=== PATIENT | female | born 1965 | race Caucasian/White ===

== ENCOUNTER 2017-12-03 13:56 | Emergency (ER) | payer OTHER ==
[2017-12-03] MEDS ORDERED: Norflex 60 MG/2 ML IM ONE (14:12)
[2017-12-03] MEDS ORDERED: TORAdol 30 mg Injection IV ONE (14:12)
--- NOTE | 2017-12-03 14:15 | ERPHSYRPT ---
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 Pt sitting on bed with knees pulled up. PT speech is clear in full sentences. no apparent respiratory distress. Physician History: CC: low back pain Hx: 52 y/o patient of Dr Araujo. She has hx of prior back problems and prior surgery per Dr Bill. She bent over this AM around 10AM and felt a pop and severe pain in her low back. No N/T/W. No urinary incontinence. No fever or chills. EMS gave some medication with partial relief. Pain sharp and severe. Timing/Duration: today (10AM) Quality: sharp Back Pain Location: lumbar spine Severity of Pain-Max: severe Severity of Pain-Current: severe Allergies/Adverse Reactions: No Known Drug Allergies Allergy (Verified 01/25/16 22:03) Home Medications: Atorvastatin Calcium [Lipitor] 20 mg PO DAILY 12/03/17 [History] Carvedilol [Carvedilol] 3.125 mg PO DAILY 12/03/17 [History] Diclofenac Sodium 50 mg [Voltaren 50 mg] 50 mg PO DAILY 12/03/17 [History] Duloxetine HCl [Cymbalta] 60 mg PO DAILY 12/03/17 [History] PANTOPRAZOLE 40 mg Tablet [Protonix 40MG Tablet] 40 mg PO QAM 12/03/17 [ History] Hx Tetanus, Diphtheria Vaccination/Date Given: No Hx Influenza Vaccination/Date Given: No Hx Pneumococcal Vaccination/Date Given: No Immunizations Up to Date: Yes - Review of Systems Constitutional: No Fever, No Chills Cardiac: No Chest Pain Abdominal/Gastrointestinal: No Abdominal Pain Musculoskeletal: Back Pain, Fall, No Neck Pain, No Joint Pain Skin: No Rash Neurological: No Focal Weakness, No Headache, No Parasthesia All Other Systems: Reviewed and Negative - Past Medical History Pertinent Past Medical History: Yes Neurological History: No Pertinent History ENT History: No Pertinent History Cardiac History: Angina Respiratory History: Bronchitis Endocrine Medical History: No Pertinent History Musculoskeletal History: Arthritis Other Medical History: LEAKING VALVE - Past Surgical History Past Surgical History: Yes Gastrointestinal: Cholecystectomy Other Surgical History: NOSE,GALLBLADDER,TUBAL, BACK - Social History Smoking Status: Current every day smoker How long have you smoked: 33 years Exposure to second hand smoke: Yes Drug Use: none Patient Lives Alone: No - Female History Hx Last Menstrual Period: menopause Hx Now: No - Nursing Vital Signs Nursing Vital Signs: Initial Vital Signs Temperature 98.3 F 12/03/17 13:57 Pulse Rate 80 12/03/17 13:57 Respiratory Rate 16 12/03/17 13:57 Blood Pressure 155/102 12/03/17 13:57 O2 Sat by Pulse Oximetry 100 12/03/17 13:57 Pain Scale Pain Intensity [Lower Back] 2 Pain Intensity 2 - Physical Exam General Appearance: alert, other (uncomfortable appearing) Eye Exam: PERRL/EOMI Ears, Nose, Throat Exam: normal ENT inspection, moist mucous membranes Neck Exam: normal inspection, non-tender, supple Respiratory Exam: normal breath sounds Cardiovascular Exam: regular rate/rhythm Gastrointestinal Exam: soft, No tenderness, No distention Back Exam: normal inspection, point tenderness (low back) Extremity Exam: normal inspection, normal range of motion Neurologic Exam: alert, oriented x 3, cooperative, 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, sensation nml, other (1+ MSR's patella bilateral), No motor deficits Skin Exam: warm, dry, No rash SpO2 Interpretation: normal SpO2: 100 Oxygen Delivery: Room Air - Course Nursing assessment & vital signs reviewed: Yes - Radiology Exams lumbar X-ray Interpretation: Teleradiologist Report (DJD), No Fracture, No Subluxation Ordered Tests: Active Orders 24 hr Category Date Time Status LUMBAR COMPLETE (MIN 4 VIEWS) Stat Exams 12/03/17 14:12 Completed Medication Summary Discontinued Medications Generic Name Dose Route Start Last Admin Trade Name Freq PRN Reason Stop Dose Admin Ketorolac Tromethamine 30 mg 12/03/17 14:12 12/03/17 14:49 Toradol 30 Mg Injection IV 12/03/17 14:13 30 mg STAT ONE Administration Ketorolac Tromethamine Confirm 12/03/17 14:30 Toradol 30 Mg Injection Administered 12/03/17 14:31 Dose 30 mg .ROUTE .STK-MED ONE Orphenadrine Citrate 60 mg 12/03/17 14:12 12/03/17 14:49 Norflex 60 Mg/2 Ml IM 12/03/17 14:13 60 mg STAT ONE Administration Orphenadrine Citrate Confirm 12/03/17 14:30 Norflex 60 Mg/2 Ml Administered 12/03/17 14:31 Dose 60 mg .ROUTE .STK-MED ONE - Progress Progress Note: 12/03/17 15:18 She has been medicated. No red flag back symptoms. Will release with muscle relaxer. To follow up with Dr Araujo as may need PT. Counseled pt/family regarding: diagnosis, need for follow-up, rad results - Departure Time of Disposition: 15:19 Departure Disposition: Home Clinical Impression: Lumbar sprain Qualifiers: Encounter type: initial encounter Qualified Code(s): S33.5XXA - Sprain of ligaments of lumbar spine, initial encounter Condition: Stable Critical Care Time: No Referrals: YANET ARAUJO MD [NON-STAFF PHY W/O PRIVILEGES] - Instructions: Low Back Pain (DC) Additional Instructions: BACK INJURY 1. May apply moist heat frequently for relief of pain. Take care not to burn the skin. Do not use heat for more than 30 minutes at a time. 2. Try to sleep on a firm bed, flat on your back. 3. If no improvement is noticed in 2-3 days, follow up with your family physician. 4. If you notice any numbness, tingling, weakness, or problems with your bowel or bladder, you should call your family physician or return to the emergency department. Continue diclofenac as prescribed. Rx norflex for muscle relaxer. Follow up with Dr Araujo. Prescriptions: Orphenadrine Citrate 100 mg [Norflex 100 MG Tablet] 1 tab PO BID #10 tab
[2017-12-03] MEDS ORDERED: TORAdol 30 mg Injection ONE (14:30)
[2017-12-03] MEDS ORDERED: Norflex 60 MG/2 ML ONE (14:30)
--- NOTE | 2017-12-03 15:06 | XRAY ---
Indication: Sharp low back pain. Comparison: July 09, 2009. 5 views of the lumbar spine again demonstrates minimal levoscoliosis centered at L3-L4 level and minimal multilevel end plate spurring. Progressive worsening L5-S1 disc space loss with opposing endplate sclerosis/spurring. Also new mild bilateral L5-S1 degenerative facet arthropathy and mild scattered aortoiliac calcifications. Impression: Again degenerative changes worsened at the L5-S1 level and minimal scoliosis. Negative acute fracture/subluxation.
[2017-12-03] MEDS ORDERED: MORPHINE SULFATE 4 MG INJ IV ONE (15:17)
[2017-12-03] MEDS ORDERED: MORPHINE SULFATE 4 MG INJ ONE (15:23)
[2017-12-03 15:46] VITALS: BP 148/94; PULSE 94; O2SAT 97
== END 2017-12-03 15:46 | disposition home or self-care (01) ==
LOC: ED 13:56
DX: S33.5XXA Sprain of ligaments of lumbar spine, initial encounter (principal); M54.5 Low back pain; Z79.899 Other long term (current) drug therapy
CPT/HCPCS: 72110; 96372; 96374; 99283; 99284; J1885; J2270; J2360

== ENCOUNTER 2021-04-26 13:22 | Emergency (ER) | payer OTHER, SELFPAY ==
[2021-04-26] MEDS ORDERED: DECADRON 10MG INJ. IV ONE (13:43)
[2021-04-26] MEDS ORDERED: TORAdol 30 mg Injection IV ONE (13:43)
[2021-04-26] MEDS ORDERED: DECADRON 10MG INJ. ONE (13:49)
[2021-04-26] MEDS ORDERED: TORAdol 30 mg Injection ONE (13:49)
--- NOTE | 2021-04-26 14:12 | ERPHSYRPT ---
- History of Present Illness Time Seen by Provider: 04/26/21 13:40 Source: patient Exam Limitations: no limitations Patient Subjective Stated Complaint: Pt states "I bent down to get a leaf and had a sudden pain in my lower back." Triage Nursing Assessment: Pt presented alert and oriented X 3, skin pwd. Pt ambulate with a shakey slow gait. PT unable to sit still. PT trembling and grunting. Physician History: Patient is a 56-year-old female presents to our ED with acute onset lumbar spine pain. Patient has history of chronic back pain. Today at approximately 11 AM patient was bending forward to lift up a leaf from the ground. At that time patient feel a severe pain to her midline lumbar spine. Pain well localized. Pain described as an ache that is worse with movement and palpation. Pain improved with rest. No other symptoms. No change in bowel bladder function. No recent back procedures. No saddle anesthesia. Patient voices no other complaints concerns at this time. Timing/Duration: today Method of Injury: bending Quality: aching Back Pain Location: lumbar spine Severity of Pain-Max: moderate Severity of Pain-Current: mild Modifying Factors: Improves With: movement Associated Symptoms: denies symptoms Previous symptoms: same symptoms as today Allergies/Adverse Reactions: No Known Drug Allergies Allergy (Verified 01/25/16 22:03) Home Medications: Atorvastatin Calcium [Lipitor] 20 mg PO DAILY 12/03/17 [History] Diclofenac Sodium 50 mg [Voltaren 50 mg] 50 mg PO DAILY 12/03/17 [History] Duloxetine HCl [Cymbalta] 60 mg PO DAILY 12/03/17 [History] PANTOPRAZOLE 40 mg Tablet [Protonix 40MG Tablet] 40 mg PO QAM 12/03/17 [History] carvediloL [Carvedilol] 3.125 mg PO DAILY 12/03/17 [History] Hx Tetanus, Diphtheria Vaccination/Date Given: No Hx Influenza Vaccination/Date Given: Yes Hx Pneumococcal Vaccination/Date Given: No Immunizations Up to Date: Yes Travel Risk - International Travel Have you traveled outside of the country in past 3 weeks: No - Coronavirus Screening Are you exhibiting any of the following symptoms?: No Close contact with a COVID-19 positive Pt in past 14-21 Days: No - Vaccine Status Have you recieved a Covid-19 vaccination: Yes 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: [employer] - Vaccination Dates Date of 2cond Vaccination (if applicable): 11/2020 - Review of Systems Constitutional: No Symptoms, No Fever, No Chills Eyes: No Symptoms Ears, Nose, & Throat: No Symptoms Respiratory: No Symptoms, No Cough, No Dyspnea Cardiac: No Symptoms, No Chest Pain, No Edema, No Syncope Abdominal/Gastrointestinal: No Symptoms, No Abdominal Pain, No Nausea, No Vomiting, No Diarrhea Genitourinary Symptoms: No Symptoms, No Dysuria Musculoskeletal: No Symptoms, No Back Pain, No Neck Pain Skin: No Symptoms, No Rash Neurological: No Symptoms, No Dizziness, No Focal Weakness, No Sensory Changes Psychological: No Symptoms Endocrine: No Symptoms Hematologic/Lymphatic: No Symptoms Immunological/Allergic: No Symptoms All Other Systems: Reviewed and Negative - Past Medical History Pertinent Past Medical History: Yes Neurological History: No Pertinent History ENT History: No Pertinent History Cardiac History: Angina Respiratory History: Bronchitis Endocrine Medical History: No Pertinent History Musculoskeletal History: Arthritis Other Medical History: LEAKING VALVE - Past Surgical History Past Surgical History: Yes Gastrointestinal: Cholecystectomy Other Surgical History: NOSE,GALLBLADDER,TUBAL, BACK - Social History Smoking Status: Current every day smoker How long have you smoked: years Exposure to second hand smoke: Yes Drug Use: none Patient Lives Alone: No - Female History Hx Now: No - Nursing Vital Signs Nursing Vital Signs: Initial Vital Signs Temperature 97.6 F 04/26/21 13:31 Pulse Rate 90 04/26/21 13:31 Respiratory Rate 24 04/26/21 13:31 Blood Pressure 132/61 04/26/21 13:31 O2 Sat by Pulse Oximetry 97 04/26/21 13:31 Pain Scale Pain Intensity [] 10 Pain Intensity 10 - Physical Exam General Appearance: no apparent distress, alert Eye Exam: PERRL/EOMI, eyes nml inspection Neck Exam: normal inspection, non-tender, supple, full range of motion, No meningismus, No midline tenderness Respiratory Exam: normal breath sounds, lungs clear, No respiratory distress Cardiovascular Exam: regular rate/rhythm, normal heart sounds Gastrointestinal Exam: soft, No tenderness, No mass Back Exam: other (Tenderness to palpation midline lumbar spine.) Extremity Exam: normal inspection, normal range of motion, No calf tenderness, No pedal edema Neurologic Exam: alert, oriented x 3, cooperative, 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 Mild levoscoliosis. Endplates burning. Vascular calcifications. No acute findings.) Ordered Tests: Active Orders 24 hr Category Date Time Status LUMBAR LIMITED (2 OR 3 VIEWS) Stat Exams 04/26/21 13:41 Completed Medication Summary Discontinued Medications Generic Name Dose Route Start Last Admin Trade Name Freq PRN Reason Stop Dose Admin Dexamethasone Sodium Phosphate 10 mg 04/26/21 13:43 04/26/21 13:53 Decadron 10mg Inj. IV 04/26/21 13:44 10 mg STAT ONE Administration Dexamethasone Sodium Phosphate Confirm 04/26/21 13:49 Decadron 10mg Inj. Administered 04/26/21 13:50 Dose 10 mg .ROUTE .STK-MED ONE Ketorolac Tromethamine 30 mg 04/26/21 13:43 04/26/21 13:51 Toradol 30 Mg Injection IV 04/26/21 13:44 30 mg STAT ONE Administration Ketorolac Tromethamine Confirm 04/26/21 13:49 Toradol 30 Mg Injection Administered 04/26/21 13:50 Dose 30 mg .ROUTE .STK-MED ONE - Progress Progress: improved Progress Note: Patient reassessed. Pain significantly improved. X-ray negative for acute pathology. Chronic findings observed. Work note provided. Patient agrees to follow-up with her primary care doctor within 48 hours for reevaluation. Portions of this note were created with voice recognition technology. There may be grammatical, spelling, punctuation or sound alike errors 04/26/21 14:42 Counseled pt/family regarding: diagnosis, need for follow-up, rad results - Departure Departure Disposition: Home Clinical Impression: Lumbosacral strain, Arthritis, lumbar spine Condition: Stable Critical Care Time: No Referrals: YANET KELLOGG MD [Primary Care Provider] - Additional Instructions: Discharge/Care Plan KATANIKA MC was seen on 04/26/21 in the Emergency Room. The patient was counseled regarding Diagnosis,Lab results, Imaging studies, need for follow up and when to return to the Emergency Room. Prescriptions given: Discharge Note I have spoken with the patient and/or caregivers. I have explained the patient's condition, diagnosis and treatment plan based on the information available to me at this time. I have answered the patient's and/or caregiver's questions and addressed any concerns. The patient and/or caregivers have as good understanding of the patient's diagnosis, condition and treatment plan as can be expected at this point. The vital signs have been stable. The patient's condition is stable and appropriate for discharge from the emergency department. The patient will pursue further outpatient evaluation with the primary care physician or other designated or consulting physician as outlined in the discharge instructions. The patient and/or caregivers are agreeable to this plan of care and follow-up instructions have been explained in detail. The patient and/or caregivers have received these instruction. The patient/and or caregivers are aware that any significant change in condition or worsening of symptoms should prompt an immediate return to this or the closest emergency department or call 911.
--- NOTE | 2021-04-26 14:32 | XRAY ---
Indication: Low back pain bending over. Comparison: December 03, 2017. 3 view lumbar spine unchanged again demonstrating minimal levoscoliosis, minimal multilevel endplate spurring, mild bilateral L5-S1 degenerative facet arthropathy, mild L5-S1 disc space loss, scattered vascular calcifications, and cholecystectomy clips. No new/acute findings.
[2021-04-26 14:43] VITALS: BP 124/70; PULSE 78
[2021-04-26 14:46] VITALS: O2SAT 99
== END 2021-04-26 15:01 | disposition home or self-care (01) ==
LOC: ED 13:22
DX: S39.012A Strain of muscle, fascia and tendon of lower back, initial encounter (principal); M47.897 Other spondylosis, lumbosacral region
CPT/HCPCS: 36000; 72100; 96374; 96375; 99284; J1100; J1885

== ENCOUNTER 2022-06-28 09:34 | Emergency (ER) | payer OTHER ==
--- NOTE | 2022-06-28 09:40 | ERPHSYRPT ---
- History of Present Illness Time Seen by Provider: 06/28/22 09:40 Historian: patient Exam Limitations: no limitations Physician History: This is a 57-year-old, postmenopausal white female patient who is a current daily smoker of cigarettes and has a history of hypertension, gastroesophageal reflux disease, hyperlipidemia and chronic angina and presents with 2-day hist ory of worsening suprapubic pain with associated nausea and vaginal bleeding that began yesterday and worsened this morning. Patient has not had a menstrual period in 8 or 9 years. Patient has not had an abdominal surgery in the past. She has dysuria. She denies rectal bleeding. She denies chest pain. She denies shortness of breath. Patient went to [facility] prior to arrival to emergency department but because of her degree of pain and her symptoms, patient was sent to us for further evaluation and management. Patient initially stated she could not get a ride home but then stated that she can get transportation home and now we can provide her with stronger pain medicine which I think she needs. Timing/Duration: day(s) (2) Activities at Onset: none Quality: sharpness, stabbing Abdominal Pain Onset Location: RLQ, LLQ, suprapubic Pain Radiation: no radiation Severity of Pain-Max: moderate Severity of Pain-Current: moderate Modifying Factors: Improves With: nothing Associated Symptoms: nausea, No fever/chills, No vomiting Previous symptoms: no prior history Allergies/Adverse Reactions: No Known Drug Allergies Allergy (Verified 06/28/22 09:38) Home Medications: Atorvastatin Calcium [Lipitor] 20 mg PO DAILY 12/03/17 [History] Diclofenac Sodium 50 mg [Voltaren 50 mg] 50 mg PO DAILY 12/03/17 [History] Duloxetine HCl [Cymbalta] 60 mg PO DAILY 12/03/17 [History] PANTOPRAZOLE 40 mg Tablet [Protonix 40MG Tablet] 40 mg PO QAM 12/03/17 [History] carvediloL [Carvedilol] 3.125 mg PO DAILY 12/03/17 [History] Hx Tetanus, Diphtheria Vaccination/Date Given: No Hx Influenza Vaccination/Date Given: Yes Hx Pneumococcal Vaccination/Date Given: No Travel Risk - International Travel Have you traveled outside of the country in past 3 weeks: No - Coronavirus Screening Are you exhibiting any of the following symptoms?: No Close contact with a COVID-19 positive Pt in past 14-21 Days: No - Vaccine Status Have you recieved a Covid-19 vaccination: Yes 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 - Vaccination Dates Date of 2cond Vaccination (if applicable): 11/2020 - Review of Systems Constitutional: No Symptoms Eyes: No Symptoms Ears, Nose, & Throat: No Symptoms Respiratory: No Symptoms Cardiac: No Symptoms Abdominal/Gastrointestinal: Abdominal Pain, Nausea, No Vomiting, No Diarrhea, No Constipation Genitourinary Symptoms: Dysuria, Hematuria, Vaginal Bleeding, No Frequency Musculoskeletal: No Symptoms Skin: No Symptoms Neurological: No Symptoms Psychological: No Symptoms Endocrine: No Symptoms Hematologic/Lymphatic: No Symptoms - Past Medical History Pertinent Past Medical History: Yes Neurological History: No Pertinent History ENT History: No Pertinent History Cardiac History: Angina Respiratory History: Bronchitis Endocrine Medical History: No Pertinent History Musculoskeletal History: Arthritis Other Medical History: LEAKING VALVE - Past Surgical History Past Surgical History: Yes Gastrointestinal: Cholecystectomy Other Surgical History: NOSE,GALLBLADDER,TUBAL, BACK - Social History Smoking Status: Current every day smoker How long have you smoked: years Exposure to second hand smoke: Yes Drug Use: none Patient Lives Alone: No - Nursing Vital Signs Nursing Vital Signs: Initial Vital Signs Temperature 97.1 F 06/28/22 09:38 Pulse Rate 75 06/28/22 09:38 Respiratory Rate 18 06/28/22 09:38 Blood Pressure 158/86 06/28/22 09:38 O2 Sat by Pulse Oximetry 98 06/28/22 09:38 Pain Scale Pain Intensity 2 - Physical Exam General Appearance: no apparent distress, alert, anxiety Eye Exam: PERRL/EOMI, eyes nml inspection Ears, Nose, Throat Exam: normal ENT inspection, moist mucous membranes Neck Exam: normal inspection, non-tender, supple, full range of motion Respiratory Exam: normal breath sounds, lungs clear, airway intact, No chest tenderness, No respiratory distress Cardiovascular Exam: regular rate/rhythm, normal heart sounds, normal peripheral pulses Gastrointestinal/Abdomen Exam: soft, normal bowel sounds, tenderness (Suprapubic region with palpation), guarding (Suprapubic region with palpation), rebound (Suprapubic region with palpation ) Pelvic Exam: not done Rectal Exam: not done Back Exam: normal inspection, normal range of motion, No CVA tenderness, No vertebral tenderness Extremity Exam: normal inspection, normal range of motion, pelvis stable Neurologic Exam: alert, oriented x 3, cooperative, post production 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 nml as tested, normal mood/affect, nml cerebellar function, nml station & gait Skin Exam: normal color, warm, dry Lymphatic Exam: No adenopathy SpO2 Interpretation: normal O2 Delivery: Room Air - Course Nursing assessment & vital signs reviewed: Yes Ordered Tests: Active Orders 24 hr Category Date Time Status IV Insertion STAT Care 06/28/22 09:45 Active ABDOMEN AND PELVIS W/0 CONTRAS [CT] Stat Exams 06/28/22 09:45 Completed AMYLASE Stat Lab 06/28/22 09:45 Completed CBC W DIFF Stat Lab 06/28/22 09:45 Completed CMP Stat Lab 06/28/22 09:45 Completed CULTURE,URINE Stat Lab 06/28/22 09:53 Received LIPASE Stat Lab 06/28/22 09:45 Completed UA W/RFX CULTURE Stat Lab 06/28/22 09:53 Completed Medication Summary Discontinued Medications Generic Name Dose Route Start Last Admin Trade Name Ed PRN Reason Stop Dose Admin Acetaminophen 650 mg 06/28/22 09:56 06/28/22 09:58 Acetaminophen 325 Mg Tablet PO 06/28/22 09:57 650 mg STAT ONE Administration Acetaminophen Confirm 06/28/22 09:58 Acetaminophen 325 Mg Tablet Administered 06/28/22 09:59 Dose 650 mg .ROUTE .STK-MED ONE Hydromorphone HCl 1 mg 06/28/22 10:08 06/28/22 10:12 Hydromorphone 1 Mg/1ml Inj 1 Mg/Ml Syringe IV 06/28/22 10:09 1 mg STAT ONE Administration Hydromorphone HCl Confirm 06/28/22 10:11 Hydromorphone 1 Mg/1ml Inj 1 Mg/Ml Syringe Administered 06/28/22 10:12 Dose 1 mg .ROUTE .STK-MED ONE Ondansetron HCl 4 mg 06/28/22 09:56 06/28/22 09:59 Ondansetron Hcl 4 Mg/2 Ml Vial IV 06/28/22 09:57 4 mg STAT ONE Administration Ondansetron HCl Confirm 06/28/22 09:58 Ondansetron Hcl 4 Mg/2 Ml Vial Administered 06/28/22 09:59 Dose 4 mg .ROUTE .STK-MED ONE Lab/Rad Data: Laboratory Result Diagrams 06/28/22 09:45 06/28/22 09:45 Laboratory Results 06/28/22 06/28/22 06/28/22 Range/Units 09:53 09:45 09:45 WBC 8.2 (4.0-10.5) x10^3/uL RBC 4.66 (4.1-5.4) x10^6/uL Hgb 15.0 (12.0-16.0) g/dL Hct 44.6 (35-47) % MCV 95.7 (78-100) fL MCH 32.2 H (26-32) pg MCHC 33.6 (32-36) g/dL RDW 12.3 (11.5-14.0) % Plt Count 300 (150-450) x10^3/uL MPV 8.8 (7.5-11.0) fL Gran % 60.3 (36.0-66.0) % Immature Gran % (Auto) 0.2 (0.00-0.4) % Nucleat RBC Rel Count 0.0 (0.00-0.1) % Eos # (Auto) 0.23 (0-0.5) x10^3/uL Immature Gran # (Auto) 0.02 (0.00-0.03) x10^3u/L Absolute Lymphs (auto) 2.42 (1.0-4.6) x10^3/uL Absolute Monos (auto) 0.57 (0.0-1.3) x10^3/uL Absolute Nucleated RBC 0.00 (0.00-0.01) x10^3u/L Lymphocytes % 29.4 (24.0-44.0) % Monocytes % 6.9 (0.0-12.0) % Eosinophils % 2.8 (0.00-5.0) % Basophils % 0.4 (0.0-0.4) % Absolute Granulocytes 4.96 (1.4-6.9) x10^3/uL Basophils # 0.03 (0-0.4) x10^3/uL Sodium 138 (137-145) mmol/L Potassium 4.1 (3.5-5.1) mmol/L Chloride 105 (98-107) mmol/L Carbon Dioxide 27 (22-30) mmol/L Anion Gap 10.0 (5-15) MEQ/L BUN 27 H (7-17) mg/dL Creatinine 1.08 H (0.52-1.04) mg/dL Estimated GFR 55.2 ML/MIN Glucose 114 H (74-106) mg/dL Calcium 8.9 (8.4-10.2) mg/dL Total Bilirubin 0.60 (0.2-1.3) mg/dL AST 30 (14-36) U/L ALT 21 (0-35) U/L Alkaline Phosphatase 204 H (38-126) U/L Serum Total Protein 7.3 (6.3-8.2) g/dL Albumin 4.5 (3.5-5.0) g/dL Amylase 151 H (30-110) U/L Lipase 111 (23-300) U/L Urinalys Dipstick Clnc MAIN LAB Urine Color YELLOW (YELLOW) Urine Appearance CLOUDY (CLEAR) Urine pH 5.0 (5-6) Ur Specific Adams >=1.030 (1.005-1.025) POC Urine Protein Conf 100 (Negative) Urine Ketones TRACE (NEGATIVE) Urine Nitrite NEGATIVE (NEGATIVE) Urine Bilirubin NEGATIVE (NEGATIVE) Urine Urobilinogen 1 (0-1) mg/dL Urine Leukocytes TRACE (NEGATIVE) Urine WBC (Auto) 26-50 (0-5) /HPF Urine RBC (Auto) 16-25 (0-2) /HPF U Epithel Cells (Auto) RARE (FEW) /HPF Urine Bacteria (Auto) FEW (NEGATIVE) /HPF Urine RBC MODERATE (0-5) Sandro/ul Urine Mucus (Auto) MODERATE (NEGATIVE) /HPF Ur Culture Indicated? YES Urine Glucose NEGATIVE (NEGATIVE) mg/dL - Progress Progress: improved, pain not gone completely Progress Note: 06/28/22 10:59 CAT scan of the abdomen pelvis without contrast shows a small hiatal hernia. Otherwise the CAT scan of the abdomen and pelvis is negative. Counseled pt/family regarding: lab results, diagnosis, need for follow-up, rad results - Departure Departure Disposition: Home Clinical Impression: Suprapubic pain, Pelvic pain, Vaginal bleeding, UTI (urinary tract infection) Condition: Stable Critical Care Time: No Referrals: YANET KELLOGG MD [Primary Care Provider] - Follow up/PCP as directed Additional Instructions: Drink plenty of fluids. Take your medication as prescribed. Follow-up with gynecology for further evaluation management. Prescriptions: Ondansetron ODT 4 MG [Zofran Odt 4 mg] 4 mg PO Q6H PRN PRN #10 tablet PRN Reason: Vomiting Hydrocodone/APAP 5/325 [[place] 5/325 mg] 1 each PO Q8H PRN PRN #6 tablet MDD 3 PRN Reason: Pain Ciprofloxacin [Cipro 500 MG] 500 mg PO BID #14 tablet
[2022-06-28] MEDS ORDERED: TYLENOL 325 MG PO ONE (09:56)
[2022-06-28] MEDS ORDERED: Zofran 4 MG/2 ML VIAL IV ONE (09:56)
[2022-06-28 09:57] LABS: Absolute Neutrophil Ct (ANC) 4.96 x10^3/uL (1.4-6.9); Basophil (Absolute #) 0.03 x10^3/uL (0-0.4); Eosinophil % 2.8 % (0.00-5.0); Eosinophil (Absolute #) 0.23 x10^3/uL (0-0.5); Hematocrit 44.6 % (35-47); Lymphocyte (Absolute #) 2.42 x10^3/uL (1.0-4.6); Lymphocytes % 29.4 % (24.0-44.0); Mean Cell Volume 95.7 fL (78-100); Mean Corpuscular Hemoglobin 32.2 pg (26-32); Mean Corpuscular Hgb Concent. 33.6 g/dL (32-36); Mean Platelet Volume 8.8 fL (7.5-11.0); Monocyte (Absolute #) 0.57 x10^3/uL (0.0-1.3); Monocytes % 6.9 % (0.0-12.0); Neutrophil % 60.3 % (36.0-66.0); Platelet Count 300 x10^3/uL (150-450); Red Blood Count 4.66 x10^6/uL (4.1-5.4); Red Cell Distribution Width 12.3 % (11.5-14.0); White Blood Count 8.2 x10^3/uL (4.0-10.5)
[2022-06-28 09:58] LABS: Appearance CLOUDY (CLEAR); Bilirubin NEGATIVE (NEGATIVE); Glucose NEGATIVE (NEGATIVE); Ketones TRACE (NEGATIVE); Specific Gravity >=1.030 (1.005-1.025)
[2022-06-28] MEDS ORDERED: Zofran 4 MG/2 ML VIAL ONE (09:58)
[2022-06-28] MEDS ORDERED: TYLENOL 325 MG ONE (09:58)
[2022-06-28 09:59] LABS: Dipstick done @ ? MAIN LAB; Nitrite NEGATIVE (NEGATIVE); Protein,Urine Dip 100 (Negative); RBC MODERATE Ery/ul (0-5); Urobilinogen 1 mg/dL (0-1)
[2022-06-28 10:03] LABS: Bacteria FEW /HPF (NEGATIVE); Epithelial Cells RARE /HPF (FEW); Mucus MODERATE /HPF (NEGATIVE); WBC 26-50 /HPF (0-5)
[2022-06-28] MEDS ORDERED: Hydromorphone 1 mg/ml Injection IV ONE (10:08)
[2022-06-28 10:09] LABS: ALBUMIN 4.5 g/dL (3.5-5.0); BILIRUBIN,TOTAL 0.6 mg/dL (0.2-1.3); Calcium 8.9 mg/dL (8.4-10.2); Creatinine 1 1.08 mg/dL (0.52-1.04); EST GLOMERULAR FILTRATION RATE 55.2 ML/MIN; Potassium 4.1 mmol/L (3.5-5.1); Total Protein 7.3 g/dL (6.3-8.2)
[2022-06-28 10:09] LABS: Urine Cultured Indicated? YES
[2022-06-28] MEDS ORDERED: Hydromorphone 1 mg/ml Injection ONE (10:11)
--- NOTE | 2022-06-28 10:55 | XRAY ---
Indication: Abdomen pain and hematuria. Vaginal pressure and bleeding. Multiple contiguous axial images obtained through the abdomen and pelvis without contrast. Comparison: None Lung bases demonstrates minimal dependent atelectasis and tiny lingula calcified granuloma. Heart not enlarged. Small hiatal hernia. Noncontrasted stomach and bowel loops nonobstructed with normal appendix. Minimal descending diverticulosis without diverticulitis. Previous cholecystectomy. No free fluid/air. Remaining liver, pancreas, spleen, adrenal glands, kidneys, ureters, bladder, and uterus are unremarkable for noncontrast exam. Mild scattered aortoiliac calcifications without AAA. Osseous structures intact with mild degenerative changes throughout the visualized spine and both hips. No ventral or inguinal hernias. Impression: 1. Small hiatal hernia, minimal colonic diverticulosis, mild arteriosclerotic disease, and mild degenerative spondylosis. 2. Remaining CT abdomen/pelvis without contrast exam is negative.
[2022-06-28] MEDS ORDERED: ROCEPHIN 1 Gm-D5w 50 ml Bag** 1 G/50 ML IVPB IV STA (11:05)
[2022-06-28] MEDS ORDERED: ROCEPHIN 1 Gm-D5w 50 ml Bag** 1 G/50 ML IVPB IV ONE (11:09)
[2022-06-28 11:17] VITALS: BP 142/68; PULSE 73; O2SAT 96
== END 2022-06-28 11:52 | disposition home or self-care (01) ==
LOC: ED 09:34
DX: N39.0 Urinary tract infection, site not specified (principal); R10.2 Pelvic and perineal pain; N93.9 Abnormal uterine and vaginal bleeding, unspecified; R11.0 Nausea; R30.0 Dysuria; I10 Essential (primary) hypertension; E78.5 Hyperlipidemia, unspecified; Z72.0 Tobacco use; Z79.891 Long term (current) use of opiate analgesic; Z79.899 Other long term (current) drug therapy
CPT/HCPCS: 36000; 36415; 74176; 80053; 81015; 82150; 83690; 85025; 87086; 96374; 96375; 99284; J0696; J1170; J2405; A9270-GY

== ENCOUNTER 2022-08-08 05:58 | Day surgery (SDC) | payer OTHER ==
[2022-08-08] MEDS ORDERED: Lactated Ringers 1,000 ML IV SCH (06:30)
[2022-08-08] MEDS ORDERED: Reglan 10 MG/2 ML IV ONE (06:44)
[2022-08-08] MEDS ORDERED: Pepcid 20 MG VIAL IV ONE (06:44)
[2022-08-08] MEDS: Versed 2 MG/2 ML Injection IV PRN ×2 (06:53→07:04)
[2022-08-08] MEDS ORDERED: CEFAZOLIN 2 GM-D5W BAG** 2 GM/50 ML ML IV SCH (07:00)
[2022-08-08] MEDS ORDERED: Versed 2 MG/2 ML Injection ONE (07:02)
[2022-08-08] MEDS ORDERED: DIPRIVAN 200 MG/20 ML IV ONE (08:00)
[2022-08-08] MEDS ORDERED: SUBLIMAZE 100 MCG/2 ML ONE ×2 (08:01→08:14)
[2022-08-08] MEDS ORDERED: Quelicin Fliptop 200 MG/10 ML ONE (08:02)
[2022-08-08] MEDS ORDERED: Lactated Ringers 1,000 ML IV ONE (08:16)
[2022-08-08] MEDS ORDERED: DUONEB 0.5-3 MG/3 ml Neb IH ONE (09:10)
[2022-08-08 10:35] VITALS: BP 132/69; PULSE 91; O2SAT 95
--- NOTE | 2022-08-09 08:14 | OP ---
SURGERY DATE/TIME: 08/08/2022 0802 PREOPERATIVE DIAGNOSIS: Postmenopausal bleeding. POSTOPERATIVE DIAGNOSIS: Postmenopausal bleeding. PROCEDURE: Hysteroscopy D&C. SURGEON: Nathaniel Abad D.O. PUNCH PRESS FEEDER: Christine Wren nursing surgical services director. ANESTHESIA: General. ESTIMATED BLOOD LOSS: Minimal. COMPLICATIONS: None. INDICATIONS: The risks, benefits, indications and alternatives of the procedure were reviewed with the patient prior to the procedure. The patient understood the risk of infection, bleeding, bowel injury, bladder injury, ureteral injury and uterine perforation associated with the surgery and desires to have this surgery as a possible means to alleviate her current medical condition. DESCRIPTION OF PROCEDURE AND FINDINGS: At this point the patient is taken to the operating room, given general sedation, placed in dorsal lithotomy position, prepped and draped in the usual sterile fashion. A weighted speculum is then placed in the patient's vagina and the anterior lip of the cervix was grasped with a single tooth tenaculum. Endocervical dilators were advanced through the endocervical canal as a means to dilate the cervix and the uterus was sounded to approximately 6 cm. From this point, a 5 mm hysteroscope was then placed through the endocervical region toward the fundal region where visualization appeared to be within normal limits with no gross abnormality. The hysteroscope was then removed and curette was then placed into the fundus of the uterus and curettage performed in all quadrants of the uterus retrieving a mild amount of tissue. From this point, hemostasis was obtained. All instruments were removed from the patient's vaginal region. The patient was then taken out of dorsal lithotomy position and was then taken to the recovery room in stable condition. All instruments and laps were accounted for x2.
== END 2022-08-08 10:10 | disposition home or self-care (01) ==
LOC: SDC 05:58
PROVIDERS: ATTEND Obstetrics & Gynecology
DX: N95.0 Postmenopausal bleeding (principal)
CPT/HCPCS: 94640; J0330; J0690; J2250; J2704; J3010; A9270-GY

== ENCOUNTER 2023-04-19 09:43 | Day surgery (SDC) | payer OTHER ==
--- NOTE | 2023-04-16 12:41 | HP ---
DATE OF SURGERY: 04/19/2023 HISTORY OF PRESENT ILLNESS: The patient is a 58-year-old female presents for endoscopy. Last colonoscopy was three years ago and she did not have any polyps. She denies family history of colon cancer. She states she is having some problems with severe constipation and she has a bowel movement about once a week. She has been having some frequent urinary tract infections. She sees Dr. Valente Salinas for that. She was started on a bowel regimen. She has some pain at tines in her abdomen. It does improve after a bowel movement. The patient does have a history of polyps after her scope. It looks like she had a scope three years ago. PAST MEDICAL HISTORY: Hypertension, hyperlipidemia, anxiety, depression. PAST SURGICAL HISTORY: Cervical neck. Cholecystectomy. Bilateral tubal ligation. ALLERGIES: NKDA. MEDICATIONS: Aspirin, primidone, duloxetine, atorvastatin, diclofenac. FAMILY HISTORY: None reported. SOCIAL HISTORY: Current every day smoker. REVIEW OF SYSTEMS: CONSTITUTIONAL: Denies fever or chills. CHEST: Denies shortness of breath. CVS: Denies chest pain. ABDOMEN: Reports abdominal pain. PHYSICAL EXAMINATION: GENERAL: No acute distress. CHEST: Nonlabored. No shortness of breath. CVS: Regular rate and rhythm. ABDOMEN: Soft. IMPRESSION: History of polyps. PLAN: Colonoscopy with Dr. Angel Lamar. As dictated by Dayna Oakley NP.
[2023-04-19 10:26] VITALS: RESP 18; TEMP 97
[2023-04-19] MEDS ORDERED: Lactated Ringers 1,000 ML IV SCH (10:30)
[2023-04-19] MEDS ORDERED: Xylocaine-Mpf 2% 5 Ml Vial ONE (12:12)
[2023-04-19] MEDS ORDERED: DIPRIVAN 200 MG/20 ML IV ONE ×2 (12:12→12:27)
[2023-04-19] MEDS ORDERED: Versed 2 MG/2 ML Injection ONE (12:21)
[2023-04-19 13:28] VITALS: BP 128/88; PULSE 73; O2SAT 99
--- NOTE | 2023-04-19 14:19 | OP ---
SURGERY DATE/TIME: 04/19/2023 1225 PREOPERATIVE DIAGNOSIS: Five year follow up of polyps. POSTOPERATIVE DIAGNOSIS: Normal. Moderate internal hemorrhoids. PROCEDURE: Colonoscopy complete to cecum. SURGEON: Angel Lamar M.D. ANESTHESIA: MAC. COMPLICATIONS: None. CONDITION: Stable. INDICATION: The patient presents for five year follow up. DESCRIPTION OF PROCEDURE: Taken to endoscopy. Excellent prep is present. Anal digital examination satisfactory. The scope advanced to the cecum. Base of the cecum, ileocecal valve were normal. Appendiceal os is not seen. Ascending, hepatic, transverse, splenic, descending, sigmoid, rectum, anus. Moderate internal hemorrhoids. PLAN: Follow up five years.
== END 2023-04-19 13:30 | disposition home or self-care (01) ==
LOC: SDC 09:43
PROVIDERS: ATTEND Surgery
DX: Z09 Encounter for follow-up examination after completed treatment for conditions other than malignant neoplasm (principal); Z86.010 Personal history of colon polyps; K64.8 Other hemorrhoids
CPT/HCPCS: J2250; J2704

== ENCOUNTER 2024-08-26 01:52 | Emergency (ER) | payer OTHER ==
--- NOTE | 2024-08-26 02:00 | ERPHSYRPT ---
- History of Present Illness Time Seen by Provider: 08/26/24 02:00 Source: patient Exam Limitations: no limitations Physician History: This is an obese 59-year-old white female patient who arrives by private vehicle after falling off a ladder onto both knees and both lower extremities. She also hit the back of her left shoulder. She denies head injury. She denies headache. She denies neck injury. She denies neck pain. She did not lose consciousness. Patient complains of pain of both knees and both lower extremities as well as the left shoulder posteriorly. Patient is awake alert and oriented. She has a history of hypertension, hyperlipidemia, obesity, an xiety and arthritis. Her tetanus status is not up-to-date Timing/Duration: today Quality: painful Severity: moderate Location: extremities (Bilateral knees and bilateral lower extremities as well as left shoulder) Associated Symptoms: denies symptoms Allergies/Adverse Reactions: No Known Drug Allergies Allergy (Verified 08/26/24 02:24) Home Medications: Atorvastatin Calcium [Lipitor] 40 mg PO DAILY 12/03/17 [History] Primidone 50 MG [Mysoline 50Mg] 50 mg PO HS 07/31/22 [History] Aspirin EC 81 mg [Ecotrin 81 mg] 81 mg PO DAILY 08/08/22 [History] Diclofenac Sodium 50 mg [Voltaren 50 mg] 50 mg PO DAILY 03/16/23 [History] Amlodipine Besylate 1 tab PO DAILY 05/02/23 [History] Carvedilol 3.125 mg [Coreg 3.125 MG] 1 tab PO DAILY 05/02/23 [History] Duloxetine HCl 1 cap PO DAILY 05/02/23 [History] Hydrocodone/Acetaminophen [Hydrocodone-Acetamin 5-325 mg] 1 tab PO Q8H PRN 05/02/23 [History] Metoprolol Succinate 25 mg Xl* [Toprol-Xl 25MG Tablets] 1 tab PO DAILY 05/02/23 [History] Metronidazole 500 mg [Flagyl 500 MG] 1 tab PO BID 05/02/23 [History] Prednisone 5 mg [Deltasone 5 mg] 1 tab PO DAILY 05/02/23 [History] dilTIAZem HCL [Cardizem Cd] 1 tab PO DAILY 05/02/23 [History] Hx Tetanus, Diphtheria Vaccination/Date Given: No Hx Influenza Vaccination/Date Given: Yes Hx Pneumococcal Vaccination/Date Given: No Travel Risk - International Travel Have you traveled outside of the country in past 3 weeks: No - Emerging Infectious Disease Are you exhibiting symptoms associated with any current EIDs: No - Review of Systems Constitutional: No Symptoms Eyes: No Symptoms Ears, Nose, & Throat: No Symptoms Respiratory: No Symptoms Cardiac: No Symptoms Abdominal/Gastrointestinal: No Symptoms Genitourinary Symptoms: No Symptoms Musculoskeletal: Fall, Injury Skin: Other (Bilateral anterior lower leg below the knee axially oriented deep skin abrasion/skin tears. Skin abrasion anterior right knee. Skin abrasion left posterior shoulder) Neurological: No Symptoms Psychological: No Symptoms Endocrine: No Symptoms Hematologic/Lymphatic: No Symptoms Immunological/Allergic: No Symptoms All Other Systems: Reviewed and Negative - Past Medical History Pertinent Past Medical History: Yes Neurological History: No Pertinent History ENT History: No Pertinent History Cardiac History: Angina, Hypertension, Other Respiratory History: Bronchitis Endocrine Medical History: No Pertinent History Musculoskeletal History: Arthritis GI Medical History: No Pertinent History History: No Pertinent History Psycho-Social History: Anxiety Female Reproductive Disorders: No Pertinent History Other Medical History: LEAKING VALVE, HIATAL HERNIA - Past Surgical History Past Surgical History: Yes Neuro Surgical History: No Pertinent History Cardiac: Cardiac Catheterization Respiratory: No Pertinent History Gastrointestinal: Cholecystectomy Genitourinary: No Pertinent History Musculoskeletal: No Pertinent History Female Surgical History: No Pertinent History Other Surgical History: NOSE,GALLBLADDER,TUBAL, PLATE IN BACK Colonoscopy - Social History Smoking Status: Current every day smoker How long have you smoked: 37 years Exposure to second hand smoke: No Drug Use: none Patient Lives Alone: No - Nursing Vital Signs Nursing Vital Signs: Initial Vital Signs Blood Pressure 141/72 08/26/24 02:21 O2 Sat by Pulse Oximetry 95 08/26/24 02:21 Pain Scale Pain Intensity 8 - Physical Exam General Appearance: no apparent distress, alert, anxiety, obese Eye Exam: PERRL/EOMI, eyes nml inspection Ears, Nose, Throat Exam: normal ENT inspection, moist mucous membranes Neck Exam: normal inspection, non-tender, supple, full range of motion Respiratory Exam: normal breath sounds, lungs clear, airway intact, No chest tenderness, No respiratory distress Cardiovascular Exam: regular rate/rhythm, normal heart sounds, normal peripheral pulses Gastrointestinal/Abdomen Exam: soft, normal bowel sounds, No tenderness Pelvic Exam: not done Rectal Exam: not done Back Exam: other (Skin abrasion posterior left shoulder) Extremity Exam: normal range of motion, pelvis stable, tenderness (In the areas of skin tears/abrasions anterior tibias bilaterally, right anterior knee the skin abrasion), other (Subcutaneous hematoma left anterior lower leg below the knee), No deformities Neurologic Exam: alert, oriented x 3, cooperative, 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 nml as tested, sensation nml Skin Exam: abrasion (See above) Lymphatic Exam: No adenopathy SpO2 Interpretation: normal O2 Delivery: Room Air - Course Nursing assessment & vital signs reviewed: Yes Ordered Tests: Active Orders 24 hr Category Date Time Status KNEE (1 OR 2 VIEW) Stat Exams 08/26/24 02:42 Taken KNEE (1 OR 2 VIEW) Stat Exams 08/26/24 02:43 Taken LOWER LEG Stat Exams 08/26/24 02:43 Taken LOWER LEG Stat Exams 08/26/24 02:44 Taken SHOULDER Stat Exams 08/26/24 02:44 Taken Medication Summary Discontinued Medications Generic Name Dose Route Start Last Admin Trade Name Freq PRN Reason Stop Dose Admin Diphtheria/Tetanus/Acell Pertussis 0.5 ml 08/26/24 02:45 08/26/24 02:58 Tdap --Diph,Pertuss(Acell),Tet Vac/Pf 0.5 Ml Vial IM 08/26/24 02:46 0.5 ml .ONCE ONE Administration Diphtheria/Tetanus/Acell Pertussis Confirm 08/26/24 02:56 Tdap --Diph,Pertuss(Acell),Tet Vac/Pf 0.5 Ml Vial Administered 08/26/24 02:57 Dose 0.5 ml IM .STK-MED ONE Oxycodone/Acetaminophen 1 tab 08/26/24 02:45 08/26/24 02:59 Oxycodone Hcl/Apap 5 Mg/325 Mg Tablet PO 08/26/24 02:46 1 tab STAT STA Administration Oxycodone/Acetaminophen Confirm 08/26/24 02:56 Oxycodone Hcl/Apap 5 Mg/325 Mg Tablet Administered 08/26/24 02:57 Dose 1 tab .ROUTE .STK-MED ONE - Progress Progress: improved, pain not gone completely Progress Note: 08/26/24 02:58 My medical decision making of the assignment of low to moderate complexity of this patient's medical issue today is based on review of the patient's past medical history, review of the patient's medication list, reviewed patient drug allergy list, history present illness and physical findings on examination. The workup in this patient includes x-ray of the patient's left shoulder, bilateral knees and bilateral lower extremities. Patient will also receive an Adacel injection and Percocet 5/325 pain pill orally. Differential diagnosis includes but is not limited to skin abrasions and skin tears, fraction/dislocation bilateral knees and bilateral lower legs, subcutaneous hematoma, contusions 08/26/24 04:31 The radiologist interpreted the impression of the following plain x-rays: 1. Left shoulder x-ray negative for acute fracture or dislocation 2. Left knee x-ray negative for acute fracture or dislocation. 3. Right knee x-ray negative for acute fracture or dislocation 4. Right lower leg x-ray negative for acute fracture or dislocation 5. Left lower leg x-ray negative for acute fracture or dislocation. There is soft tissue swelling on the anterior aspect of the left lower leg Counseled pt/family regarding: diagnosis, need for follow-up, rad results Medical Desision Making - Diagnostic Testing Diagnostic test were ordered, analyzed, and reviewed by me: Yes Radiological Interpretation: Reviewed by me, Teleradiologist Report - Risk of complications The pt has a mod risk of morbidity or mortality based on: Need for prescription drug management - Departure Departure Disposition: Home Clinical Impression: Contusion, lower limb, multiple sites, Contusion of left shoulder, Skin abrasion, Hematoma of left lower leg Condition: Stable Critical Care Time: No Referrals: YANET KELLOGG MD [Primary Care Provider] - Follow up/PCP as directed Additional Instructions: Keep the Steri-Strip dry until the morning of 08/27/2024. At that time you may rinse abrasion sites and the skin tear sites daily with soap and water. May apply antibiotic ointment to abrasion sites 1-2 times a day. Continue your diclofenac as well as your Percocet for pain control. Call your primary care provider today, 08/26/2024, to make arrangements for follow-up appointment to be seen in the next 5 to 7 days. Prescriptions: Oxycodone HCl/Acetaminophen [Percocet 5-325 mg Tablet] 1 each PO Q8H PRN PRN #6 tablet MDD 3 PRN Reason: Moderate To Severe Pain
[2024-08-26 02:33] VITALS: TEMP 97
[2024-08-26] MEDS ORDERED: PERCOCET TABLET 5/325MG ONE ×2 (02:56→04:40)
[2024-08-26] MEDS ORDERED: Adacel Vial IM ONE (02:56)
[2024-08-26] MEDS: Adacel Vial IM ONE (02:58)
[2024-08-26] MEDS: PERCOCET TABLET 5/325MG PO STA ×2 (02:59→04:40)
[2024-08-26 03:17] VITALS: RESP 18
[2024-08-26 04:43] VITALS: BP 129/61; PULSE 81; O2SAT 96
--- NOTE | 2024-08-26 08:49 | XRAY ---
CLINICAL HISTORY: Fall injury COMPARISON: None. TECHNIQUE: X-rays of right knee AP and lateral views. FINDINGS: Bone: Normal bone mineralization. A radiological examination of the knee demonstrates no focal bony lesion or bone erosion. No sclerotic or destructive bone changes. No definite fracture or dislocation. Joint: Femorotibial and patellofemoral joint spaces are normal with intact articular margins, show mild sclerosis of the tibia articular surface. A small subchondral cyst noted. No joint effusion in the suprapatellar bursa. Soft tissue: Soft tissues appear unremarkable. IMPRESSION: 1. Mild early osteoarthritis. 2. No acute osseous abnormality seen in knee. DISCLAIMER:A subtle bone abnormality or fracture may not be readily apparent on x-rays, thus clinical correlation and further imaging including follow up CT, MRI, or follow up x-rays are advised as needed. Electronically Signed by: Michael Wang MD. (08/26/2024 04:07:40 EST)
--- NOTE | 2024-08-26 08:49 | XRAY ---
CLINICAL HISTORY: Fall injury COMPARISON: None. TECHNIQUE: X-ray images of the right tibia/fibula were obtained in AP and lateral views. FINDINGS: Bone: Normal bone mineralization. No acute fracture is identified. Radiological examination of the right tibia and fibula demonstrates no lytic or sclerotic bone lesion. The cortical margins of the osseous structures are within normal limits. Joint: A small subchondral cyst was noted at the subarticular surface of the proximal tibia. Soft tissues: Soft tissue irregular area of calcification/ossification noted at anterolateral distal leg, likely of chronic appearance; please correlate clinically. IMPRESSION: 1. No acute fracture detected. 2. Distal leg focal area of irregular calcification in the anterolateral soft tissues. DISCLAIMER:A subtle bone abnormality or fracture may not be readily apparent on x-rays, thus clinical correlation and further imaging including follow up CT, MRI, or follow up x-rays are advised as needed. Electronically Signed by: Michael Wang MD. (08/26/2024 03:44:39 EST)
--- NOTE | 2024-08-26 08:49 | XRAY ---
CLINICAL HISTORY: Fall injury COMPARISON: None. TECHNIQUE: X-ray of the left shoulder in AP external/internal rotation and Y views. FINDINGS: Bone: No evidence of fracture or dislocation was noted,. Normal bone density seen. No lytic or sclerotic lesion. Joints: Normal articulation and joint spaces seen. Soft tissues: Unremarkable soft tissue. IMPRESSION: 1. No acute osseous abnormality. 2. No other significant abnormality. DISCLAIMER:A subtle bone abnormality or fracture may not be readily apparent on x-rays, thus clinical correlation and further imaging including follow up CT, MRI, or follow up x-rays are advised as needed. Electronically Signed by: Michael Wang MD. (08/26/2024 04:15:12 EST)
--- NOTE | 2024-08-26 08:49 | XRAY ---
CLINICAL HISTORY: Fall injury COMPARISON: None. TECHNIQUE: X-ray images of left tibia/fibula in AP and lateral views. FINDINGS: Bones: Normal bone mineralization. Radiological examination of the left tibia and fibula demonstrates no lytic or sclerotic bone lesion. The cortical margins of the osseous structures are within normal limits. No acute fracture is identified. Soft tissue: Mild soft tissue swelling at the anterior aspect. IMPRESSION: 1. Normal left tibia and fibula. 2. No acute osseous abnormality seen. 3. Mild soft tissue swelling at the anterior aspect. DISCLAIMER:A subtle bone abnormality or fracture may not be readily apparent on x-rays, thus clinical correlation and further imaging including follow up CT, MRI, or follow up x-rays are advised as needed. Electronically Signed by: Michael Wang MD. (08/26/2024 04:06:12 EST)
--- NOTE | 2024-08-26 08:49 | XRAY ---
CLINICAL HISTORY: Fall injury COMPARISON: None. TECHNIQUE: X-ray images of the left knee in AP and lateral views. FINDINGS: Bone: Normal bone mineralization. Radiological examination of the knee demonstrates no focal bony lesion or bone erosion. No sclerotic or destructive bone changes. No definite fracture or dislocation. Joint: Femorotibial and patellofemoral joint spaces are normal with intact articular margins. No joint effusion in the suprapatellar bursa. Soft tissue: Soft tissues appear unremarkable. IMPRESSION: 1. Normal left knee x-ray. 2. No acute osseous abnormality seen in knee. DISCLAIMER:A subtle bone abnormality or fracture may not be readily apparent on x-rays, thus clinical correlation and further imaging including follow up CT, MRI, or follow up x-rays are advised as needed. Electronically Signed by: Michael Wang MD. (08/26/2024 03:50:56 EST)
== END 2024-08-26 04:54 | disposition home or self-care (01) ==
LOC: ED 01:52
DX: S80.12XA Contusion of left lower leg, initial encounter (principal); S80.11XA Contusion of right lower leg, initial encounter; M25.562 Pain in left knee; M25.561 Pain in right knee; M79.605 Pain in left leg; M79.604 Pain in right leg; W11.XXXA Fall on and from ladder, initial encounter; F17.200 Nicotine dependence, unspecified, uncomplicated
CPT/HCPCS: 73030; 73560; 73590; 90471; 90715; 99283; 99284; A9270-GY

== ENCOUNTER 2024-09-01 13:54 | Emergency (ER) | payer OTHER ==
[2024-09-01 14:35] VITALS: BP 127/59; PULSE 88; TEMP 97.6; O2SAT 99
--- NOTE | 2024-09-01 14:48 | ERPHSYRPT ---
- History of Present Illness Time Seen by Provider: 09/01/24 14:30 Source: patient, family Exam Limitations: no limitations Patient Subjective Stated Complaint: C/O Increased swelling to BLE from a fall off of a ladder on 08/26/24. Went to [facility] today due for a wound check to LLE; afraid it may be infected. [facility] referred her to ER for possible DVT to RLE. Triage Nursing Assessment: Patient brought back to ER in a W/C. Patient able to transfer self from chair to bed. Steri strips intact to LLE. Area surrounding steri strips red, hot, swollen. Distal area of proximal laceration with a small amount of bleeding present. RLE is also swollen and bruised. Distal area to right lateral knee if more swollen than the rest of the RLE. Physician History: This is a morbidly obese 59-year-old white female patient of Dr. Garibay who with to the emergency department secondary to swelling in her bilateral lower extremities below the knee left greater than right. Patient was seen by me on 08/26/2024 after she fell off a ladder injuring her bilateral lower extremities. She has a subcutaneous hematoma in the right lower extremity below the knee medial aspect. She also had a deep abrasion of the skin x 2 in the left lower extremity anterior tibia distribution. Over the last several days she has noticed increased swelling and ecchymosis in both of her feet. Patient was seen at [facility] prior to arrival and was told that they were concerned that she might have a "blood clot". She has not had fevers. There is redness present around the left lower extremity upper abrasion site. Patient has a history of hypertension, hyperlipidemia, anxiety and arthritis. Method of Injury: fell Occurred: days ago (5) Severity of Pain-Max: moderate Severity of Pain-Current: moderate Lower Extremities Pain: leg: bilateral (Below the knees) Modifying Factors: Improves With: movement Allergies/Adverse Reactions: No Known Drug Allergies Allergy (Verified 09/01/24 14:13) Home Medications: Atorvastatin Calcium [Lipitor] 40 mg PO DAILY 12/03/17 [History] Primidone 50 MG [Mysoline 50Mg] 50 mg PO HS 07/31/22 [History] Aspirin EC 81 mg [Ecotrin 81 mg] 81 mg PO DAILY 08/08/22 [History] Diclofenac Sodium 50 mg [Voltaren 50 mg] 50 mg PO DAILY 03/16/23 [History] Amlodipine Besylate 1 tab PO DAILY 05/02/23 [History] Carvedilol 3.125 mg [Coreg 3.125 MG] 1 tab PO DAILY 05/02/23 [History] Duloxetine HCl 1 cap PO DAILY 05/02/23 [History] Hydrocodone/Acetaminophen [Hydrocodone-Acetamin 5-325 mg] 1 tab PO Q8H PRN 05/02/23 [History] Metoprolol Succinate 25 mg Xl* [Toprol-Xl 25MG Tablets] 1 tab PO DAILY 05/02/23 [History] Metronidazole 500 mg [Flagyl 500 MG] 1 tab PO BID 05/02/23 [History] Prednisone 5 mg [Deltasone 5 mg] 1 tab PO DAILY 05/02/23 [History] dilTIAZem HCL [Cardizem Cd] 1 tab PO DAILY 05/02/23 [History] Hx Tetanus, Diphtheria Vaccination/Date Given: No Hx Influenza Vaccination/Date Given: Yes Hx Pneumococcal Vaccination/Date Given: No Immunizations Up to Date: Yes Travel Risk - International Travel Have you traveled outside of the country in past 3 weeks: No - Emerging Infectious Disease Are you exhibiting symptoms associated with any current EIDs: No - Review of Systems Constitutional: No Symptoms Eyes: No Symptoms Ears, Nose, & Throat: No Symptoms Respiratory: No Symptoms Cardiac: No Symptoms Abdominal/Gastrointestinal: No Symptoms Genitourinary Symptoms: No Symptoms Musculoskeletal: Fall, Injury (Bilateral lower extremity below the knee pain and swelling with ecchymosis) Skin: Other (Bilateral lower extremity swelling with redness around the left lower extremity abrasion site below the knee) Neurological: No Symptoms Psychological: No Symptoms Endocrine: No Symptoms Hematologic/Lymphatic: No Symptoms Immunological/Allergic: No Symptoms All Other Systems: Reviewed and Negative - Past Medical History Pertinent Past Medical History: Yes Neurological History: No Pertinent History ENT History: No Pertinent History Cardiac History: Angina, Hypertension, Other Respiratory History: Bronchitis Endocrine Medical History: No Pertinent History Musculoskeletal History: Arthritis GI Medical History: No Pertinent History History: No Pertinent History Psycho-Social History: Anxiety Female Reproductive Disorders: No Pertinent History Other Medical History: LEAKING VALVE, HIATAL HERNIA - Past Surgical History Past Surgical History: Yes Neuro Surgical History: No Pertinent History Cardiac: Cardiac Catheterization Respiratory: No Pertinent History Gastrointestinal: Cholecystectomy Genitourinary: No Pertinent History Musculoskeletal: No Pertinent History Female Surgical History: Tubal Ligation Other Surgical History: NOSE, PLATE IN BACK Colonoscopy - Social History Smoking Status: Current every day smoker How long have you smoked: 37 years Exposure to second hand smoke: No Drug Use: none Patient Lives Alone: No - Social Determinants of Health Will the patient participate in the screening: Yes Do you worry about a steady place to live?: No Do you have any problems with any of the following?: No known problems In the past 12 months,have you had to go without utilities?: No Transportation Issues: No Has anyone in your support network made you feel unsafe?: No Have you or anyone in your house had to go without enough: No - Nursing Vital Signs Nursing Vital Signs: Initial Vital Signs Temperature 97.6 F 09/01/24 14:00 Pulse Rate 88 09/01/24 14:00 Respiratory Rate 17 09/01/24 14:00 Blood Pressure 127/59 09/01/24 14:00 O2 Sat by Pulse Oximetry 99 09/01/24 14:00 Pain Scale Pain Intensity 5 - Physical Exam General Appearance: no apparent distress, alert, anxiety, obese Eyes, Ears, Nose, Throat Exam: normal ENT inspection, moist mucous membranes Neck Exam: normal inspection, non-tender, supple, full range of motion Cardiovascular/Respiratory Exam: chest non-tender, no respiratory distress Gastrointestinal/Abdominal Exam: non-tender Back Exam: normal inspection, normal range of motion, No CVA tenderness, No vertebral tenderness Hips Exam: bilateral: non-tender, normal inspection, normal range of motion, no evidence of injury Legs Exam: left leg: other (Redness around the upper skin abrasion site), bilateral leg: soft tissue tenderness (Bilateral below the knee), swelling (Bilateral below the knee) Knees Exam: bilateral knee: non-tender, normal inspection, normal range of motion, no evidence of injury Ankle Exam: bilateral ankle: soft tissue tenderness, swelling Foot Exam: bilateral foot: normal range of motion, no evidence of injury, soft tissue tenderness, swelling Neuro/Tendon Exam: normal sensation, normal motor functions, normal tendon functions, responds to pain, no evidence tendon injury Mental Status Exam: alert, oriented x 3, cooperative Skin Exam: normal color, warm, dry SpO2 Interpretation: normal SpO2: 99 O2 Delivery: Room Air Ordered Tests: Active Orders 24 hr Category Date Time Status VENOUS BILATERAL EXTREMITY [US] Stat Exams 09/01/24 14:23 Taken Medication Summary Discontinued Medications Generic Name Dose Route Start Last Admin Trade Name Ed PRN Reason Stop Dose Admin Enoxaparin Sodium 95 mg 09/01/24 16:21 Enoxaparin Sodium 120 Mg/0.8 Ml Syringe SQ 09/01/24 16:22 STAT STA - Progress Progress: unchanged Progress Note: 09/01/24 14:49 My medical decision making and the assignment of low to moderate complexity is based on review of the patient's past medical history, review of patient medication list, reviewed patient drug allergy list, history present illness and physical findings on examination. The workup in this patient includes bilateral lower extremity venous Doppler testing. Differential diagnosis includes but is not limited to cellulitis, DVT 09/01/24 16:22 The fox farmer/technologist provided me the preliminary report on the patient's bilateral lower extremity venous Dopplers. The studies are negative for DVT bilaterally. The right leg is positive for a nonocclusive below the knee SVT in the distal greater saphenous vein. The greater saphenous vein is a superficial vein not deep vein Counseled pt/family regarding: diagnosis, rad results Medical Desision Making - Independent Historian Additional History obtained from: Family - Diagnostic Testing Diagnostic test were ordered, analyzed, and reviewed by me: Yes Radiological Interpretation: Reviewed by me - Risk of complications The pt has a mod risk of morbidity or mortality based on: Need for prescription drug management - Departure Departure Disposition: Home Clinical Impression: Bilateral lower leg cellulitis Condition: Stable Critical Care Time: No Referrals: YANET KELLOGG MD [Primary Care Provider] - Follow up/PCP as directed Additional Instructions: Keep your bilateral lower extremities elevated above the level of your heart when not up and ambulating. Wear bilateral lower extremity Hal wraps for pressure. Take your antibiotics and other medications as prescribed. Call your primary care provider tomorrow, 09/02/2024, to make arrangements for follow-up appointment to be seen in the next 3 to 5 days. Discussed with your provider whether or not they feel you need to continue with blood thinning medication. Return to the emergency department tomorrow, 09/02/2024, for reassessment. Prescriptions: Levofloxacin [Levaquin 500 MG Tablet] 500 mg PO DAILY #7 tablet
--- NOTE | 2024-09-01 16:42 | XRAY ---
Indication: DVT. Two-dimensional sonogram and color Doppler imaging major venous vessels left and right leg performed. Comparison: None Right leg demonstrates nonoccluding thrombus in greater saphenous vein below knee. No thrombus seen in the examined deep venous vessels left and right leg including left greater saphenous vein. Patent veins demonstrate normal compressibility. Venous waveforms are normal with and without augmentation. Impression: 1. Nonoccluding thrombus in right greater saphenous vein, a superficial vein. 2. Left and right legs negative for DVT.
[2024-09-01] MEDS ORDERED: Levofloxacin 500 MG Tablet ONE (16:52)
[2024-09-01] MEDS ORDERED: Rocephin 1000 MG INJ ONE (16:52)
[2024-09-01] MEDS ORDERED: ENOXAPARIN SODIUM SQ ONE (16:52)
[2024-09-01] MEDS: Rocephin 1000 MG INJ IM ONE (17:00)
[2024-09-01] MEDS: ENOXAPARIN SODIUM SQ STA (17:01)
[2024-09-01] MEDS: Levofloxacin 500 MG Tablet PO ONE (17:02)
[2024-09-01 17:23] VITALS: RESP 16
== END 2024-09-01 17:20 | disposition home or self-care (01) ==
LOC: ED 13:54
DX: L03.116 Cellulitis of left lower limb (principal); L03.115 Cellulitis of right lower limb; I10 Essential (primary) hypertension; E78.5 Hyperlipidemia, unspecified; Z79.899 Other long term (current) drug therapy; Z72.0 Tobacco use
CPT/HCPCS: 93970; 96372; 99284; J0696; J1650; A9270-GY